=== PATIENT | male | born 1995 | race Caucasian/White ===

== ENCOUNTER 2022-08-28 08:00 | Outpatient (CLI) | payer OTHER ==
--- NOTE | 2022-08-28 13:38 | XRAY Report ---
PROCEDURE: Ankle 3 View LT INDICATIONS: L ANKLE PX TECHNIQUE: 3 views of the ankle were acquired. COMPARISON: None FINDINGS: Bones: No fractures or dislocations. Ankle mortise is normally aligned. No suspicious bony lesions . Soft tissues: No tibiotalar joint effusion. Achilles tendon appears normal. There is some moderate soft tissue swelling over the lateral malleolus IMPRESSION: 1. No evidence for acute osseous abnormality involving the left ankle. 2. Moderate soft tissue swelling over the lateral malleolus. Reviewed by: Casimiro Dobbins MD on 08/28/2022 1:36 PM PST Approved by: Casimiro Dobbins MD on 08/28/2022 1:36 PM PST Station ID: [id number]
== END 2022-08-28 23:59 | disposition home or self-care (01) ==
LOC: DI.N 08:00
PROVIDERS: ATTEND Registered Nurse
DX: M25.572 Pain in left ankle and joints of left foot (principal); R22.42 Localized swelling, mass and lump, left lower limb

== ENCOUNTER 2023-09-10 09:15 | Outpatient (CLI) | payer OTHER ==
--- NOTE | 2023-09-10 14:41 | MRI Report ---
PROCEDURE: MRI lumbar spine without contrast INDICATIONS: LOW BACK PAIN TECHNIQUE: Multiplanar multisequential MRI images of the lumbar spine were obtained without intraven ous contrast. COMPARISON: None. FINDINGS: Alignment and Curvature: There is normal bony alignment. Bone Marrow: Marrow is of normal overall signal. No acute vertebral body compression fractures. No sacral fractures. Spinal Cord: Conus medullaris terminates at the L1 level. Visualized cord demonstrates normal signa l and size. Paraspinal Soft Tissues: Unremarkable perivertebral soft tissues. T12-L1: Normal in appearance. L1-L2: Normal in appearance. L2-L3: Normal in appearance. L3-L4: Normal in appearance. L4-L5: Normal in appearance. L5-S1: Normal in appearance. IMPRESSION: Normal MRI of the lumbar spine. No central or foraminal stenosis throughout the exam Reviewed by: Bakari Smith MD on 09/10/2023 1:40 PM [place] Approved by: Bakari Smith MD on 09/10/2023 1:40 PM [facility] Station ID: [id number]
== END 2023-09-10 09:16 | disposition home or self-care (01) ==
LOC: DI 09:15
PROVIDERS: ATTEND Nurse Practitioner Family
DX: M54.50 Low back pain, unspecified (principal)